=== PATIENT | male | born 1930 | race Caucasian/White ===

== ENCOUNTER 2017-11-30 11:20 | Emergency (ER) | payer OTHER ==
[~2017-11-30] VITALS: Ht 165.1 cm; Wt 86.2 kg
[~2017-11-30 11:20] MED LIST: IBUPROFEN800 MG PO; SEPTRA DS TABLE1 TAB PO
[2017-11-30] MEDS ORDERED: COZAAR50 MG (12:08)
== END 2017-11-30 16:14 | disposition home or self-care (01) ==
LOC: ER 11:20
DX: G25.1 Drug-induced tremor (principal); F41.8 Other specified anxiety disorders; T42.4X5A Adverse effect of benzodiazepines, initial encounter; Y92.89 Other specified places as the place of occurrence of the external cause